=== PATIENT | female | born 1985 | race Two or more races ===

== ENCOUNTER 2018-01-24 14:30 | Emergency (ER) | payer OTHER ==
[~2018-01-24] VITALS: Ht 160 cm; Wt 78.7 kg
[2018-01-24 14:31] VITALS: BP 114/86
[2018-01-24] MEDS ORDERED: CYCL-1 PO (14:46)
== END 2018-01-24 14:59 | disposition home or self-care (01) ==
LOC: ER 14:31
DX: S29.012A Strain of muscle and tendon of back wall of thorax, initial encounter (principal); Z79.899 Other long term (current) drug therapy; X50.1XXA Overexertion from prolonged static or awkward postures, initial encounter; Y93.89 Activity, other specified; Y92.89 Other specified places as the place of occurrence of the external cause; Y99.8 Other external cause status
CPT/HCPCS: 99283